=== PATIENT | male | born 1965 | race Caucasian/White ===

== ENCOUNTER 2023-10-21 09:32 | Day surgery (SDC) | payer BC ==
[~2023-10-21] VITALS: Ht 177.8 cm; Wt 172.7 kg
[~2023-10-21 09:32] MED LIST: ALLO100T PO; CVS1CHW13 PO; DILT180C38 PO; EZET10TA21 PO; FARX1TAB3 PO; FURO40TA2 PO; GNP45TAB2 PO; LEXA1TAB PO; PANT40TA29 PO; POTA-149 PO; WARF-21 PO; ZYLO100T2 PO
[2023-10-21] MEDS: NS 1,000 ML IV ONE (10:22)
[2023-10-21] MEDS ORDERED: LIDOCAINE 2% 100MG/5ML SDV (FOR ANES.) As Ordered ONE (11:18)
[2023-10-21] MEDS ORDERED: fentaNYL 100 MCG/2 ML INJECTION As Ordered ONE (11:18)
[2023-10-21] MEDS ORDERED: propofoL 200 MG/20 ML VIAL As Ordered ONE (11:18)
[2023-10-21 12:00] VITALS: TEMP 97
[2023-10-21 12:23] VITALS: BP 118/71; O2SAT 97
== END 2023-10-21 12:25 | disposition home or self-care (01) ==
LOC: M OPP 09:32
PROVIDERS: ATTEND Internal Medicine Gastroenterology
DX: Z12.11 Encounter for screening for malignant neoplasm of colon (principal); Z12.12 Encounter for screening for malignant neoplasm of rectum; D12.5 Benign neoplasm of sigmoid colon; D12.3 Benign neoplasm of transverse colon; D12.2 Benign neoplasm of ascending colon; K64.8 Other hemorrhoids; K64.4 Residual hemorrhoidal skin tags; K21.00 Gastro-esophageal reflux disease with esophagitis, without bleeding; K31.811 Angiodysplasia of stomach and duodenum with bleeding; K29.70 Gastritis, unspecified, without bleeding; D50.9 Iron deficiency anemia, unspecified; I48.91 Unspecified atrial fibrillation; I10 Essential (primary) hypertension; E11.9 Type 2 diabetes mellitus without complications; E78.00 Pure hypercholesterolemia, unspecified; J44.9 Chronic obstructive pulmonary disease, unspecified; G47.30 Sleep apnea, unspecified; Z79.899 Other long term (current) drug therapy; M10.9 Gout, unspecified; Z79.01 Long term (current) use of anticoagulants; Z88.0 Allergy status to penicillin; Z88.6 Allergy status to analgesic agent; Z88.8 Allergy status to other drugs, medicaments and biological substances; Z91.041 Radiographic dye allergy status
CPT/HCPCS: 43239; 43255; 45385; 88305; J3010

== ENCOUNTER → 2023-11-21 | Outpatient (CLI) | payer BC ==
[2023-11-21 10:42] LABS: BASO # 0.1 10^3/uL (0.0-0.2); BASO % 1.1 % (0.0-1.0); EOS # 0.3 10^3/uL (0.0-0.5); HEMATOCRIT 47.2 % (42.0-52.0); HEMOGLOBIN 15.4 g/dl (13.5-17.5); LYMPH # 1.5 10^3/uL (1.5-5.0); LYMPH % 23.8 % (24.0-44.0); MEAN CORPUSCULAR HEMOGLOBIN 27.4 pg (27.0-33.0); MEAN CORPUSCULAR HGB CONC 32.6 g/dl (32.0-36.5); MEAN CORPUSCULAR VOLUME 83.8 fl (80.0-96.0); MONO # 0.4 10^3/uL (0.0-0.8); MONO % 6.9 % (2.0-8.0); NEUTROPHILS # 4.1 10^3/uL (1.5-8.5); NEUTROPHILS % 63.7 % (36.0-66.0); PLATELET COUNT, AUTOMATED 194 10^3/uL (150-450); RED BLOOD COUNT 5.63 10^6/uL (4.30-6.10); WHITE BLOOD COUNT 6.4 10^3/uL (4.0-10.0)
[2023-11-21 11:18] LABS: FERRITIN 24.4 NG/ML (10.5-307.3)
[2023-11-21 11:21] LABS: PERCENT SATURATION 9.7 % (19.7-50.0)
== END ==
LOC: M LAB 09:38
PROVIDERS: ATTEND Nurse Practitioner Family
DX: D50.9 Iron deficiency anemia, unspecified (principal)

== ENCOUNTER 2023-12-22 11:35 | Day surgery (SDC) | payer BC ==
[~2023-12-22] VITALS: Ht 175.3 cm; Wt 170.7 kg
[~2023-12-22 11:35] MED LIST changes: +ARIP1TAB4 PO; +DILT-65 PO; +LEXA1TAB2 PO; +WARF-23 PO
[2023-12-22] MEDS ORDERED: propofoL 200 MG/20 ML VIAL As Ordered ONE (11:36)
[2023-12-22] MEDS: NS 1,000 ML IV ONE (11:48)
[2023-12-22 12:41] VITALS: TEMP 99.8
[2023-12-22 12:54] VITALS: BP 99/58; O2SAT 97
== END 2023-12-22 13:13 | disposition home or self-care (01) ==
LOC: M OPP 11:35
PROVIDERS: ATTEND Internal Medicine Gastroenterology
DX: K31.7 Polyp of stomach and duodenum (principal); K31.811 Angiodysplasia of stomach and duodenum with bleeding; D50.9 Iron deficiency anemia, unspecified; C7A.092 Malignant carcinoid tumor of the stomach; I51.9 Heart disease, unspecified; I48.91 Unspecified atrial fibrillation; E11.9 Type 2 diabetes mellitus without complications; G47.30 Sleep apnea, unspecified; Z99.89 Dependence on other enabling machines and devices; Z87.891 Personal history of nicotine dependence; Z79.01 Long term (current) use of anticoagulants; Z79.84 Long term (current) use of oral hypoglycemic drugs; Z79.899 Other long term (current) drug therapy; Z88.1 Allergy status to other antibiotic agents; Z88.6 Allergy status to analgesic agent; Z91.040 Latex allergy status; Z91.041 Radiographic dye allergy status

== ENCOUNTER → 2024-03-23 | Outpatient (REF) | payer BC | LOC: M LAB REF 11:44 | PROVIDERS: ATTEND Nurse Practitioner Family | DX: R19.7 Diarrhea, unspecified (principal) ==

== ENCOUNTER → 2024-04-14 | Outpatient (CLI) | payer BC ==
[~2024-04-14] MED LIST changes: +ESOM40CA35 PO
== END ==
LOC: M PLAIMG 09:47
PROVIDERS: ATTEND Nurse Practitioner Family
DX: K86.81 Exocrine pancreatic insufficiency (principal); Z90.49 Acquired absence of other specified parts of digestive tract

== ENCOUNTER 2024-04-20 12:02 | Day surgery (SDC) | payer BC ==
[~2024-04-20] VITALS: Ht 177.8 cm; Wt 170.1 kg
[~2024-04-20 12:02] MED LIST changes: +NS 250 ML IV ONE
[2024-04-20] MEDS ORDERED: propofoL 200 MG/20 ML VIAL As Ordered ONE (14:01)
[2024-04-20] MEDS ORDERED: LIDOCAINE 2% 100MG/5ML SDV (FOR ANES.) As Ordered ONE (14:01)
[2024-04-20 15:02] VITALS: TEMP 98
[2024-04-20] MEDS ORDERED: ePHEDrine SULFATE 25 MG/5 ML(5MG/ML) SYRINGE As Ordered ONE (15:08)
[2024-04-20 15:26] VITALS: BP 104/58; O2SAT 96
== END 2024-04-20 15:48 | disposition home or self-care (01) ==
LOC: M OPP 12:02
PROVIDERS: ATTEND Internal Medicine Gastroenterology
DX: D50.9 Iron deficiency anemia, unspecified (principal); C16.1 Malignant neoplasm of fundus of stomach; K31.819 Angiodysplasia of stomach and duodenum without bleeding; I48.91 Unspecified atrial fibrillation; E78.5 Hyperlipidemia, unspecified; E11.9 Type 2 diabetes mellitus without complications; K21.9 Gastro-esophageal reflux disease without esophagitis; M19.90 Unspecified osteoarthritis, unspecified site; F41.9 Anxiety disorder, unspecified; F32.A Depression, unspecified; J45.909 Unspecified asthma, uncomplicated; J44.9 Chronic obstructive pulmonary disease, unspecified; G47.30 Sleep apnea, unspecified; F12.20 Cannabis dependence, uncomplicated; E66.01 Morbid (severe) obesity due to excess calories; Z88.1 Allergy status to other antibiotic agents; Z88.6 Allergy status to analgesic agent; Z91.040 Latex allergy status; Z91.041 Radiographic dye allergy status; Z79.01 Long term (current) use of anticoagulants; Z79.84 Long term (current) use of oral hypoglycemic drugs; Z79.899 Other long term (current) drug therapy; Z80.0 Family history of malignant neoplasm of digestive organs; Z80.8 Family history of malignant neoplasm of other organs or systems

== ENCOUNTER 2024-05-10 21:47 | Emergency (ER) | payer BC ==
[~2024-05-10] VITALS: Ht 175.3 cm; Wt 169.2 kg
[~2024-05-10 21:47] MED LIST changes: -NS 250 ML IV ONE
[2024-05-10 22:41] LABS: BASO # 0.1 10^3/uL (0.0-0.2); EOS # 0.3 10^3/uL (0.0-0.5); EOS % 3.3 % (0.0-3.0); HEMATOCRIT 47.8 % (42.0-52.0); HEMOGLOBIN 16.7 g/dl (13.5-17.5); LYMPH # 1.7 10^3/uL (1.5-5.0); LYMPH % 22.4 % (24.0-44.0); MEAN CORPUSCULAR HEMOGLOBIN 30.8 pg (27.0-33.0); MEAN CORPUSCULAR HGB CONC 34.9 g/dl (32.0-36.5); MEAN CORPUSCULAR VOLUME 88.2 fl (80.0-96.0); MONO # 0.6 10^3/uL (0.0-0.8); MONO % 7.2 % (2.0-8.0); NEUTROPHILS % 65.8 % (36.0-66.0); PLATELET COUNT, AUTOMATED 184 10^3/uL (150-450); RED BLOOD COUNT 5.42 10^6/uL (4.30-6.10); WHITE BLOOD COUNT 7.6 10^3/uL (4.0-10.0)
[2024-05-10 22:53] LABS: INR 2.29; PARTIAL THROMBOPLASTIN TIME 37.5 SECONDS (24.8-34.2); PROTHROMBIN TIME 25.3 SECONDS (12.5-14.5)
[2024-05-10] MEDS: ONDANSETRON 4MG 2ML VIAL IV ONE (23:07)
[2024-05-10] MEDS: MORPHINE 4 MG/ML 1ML VIAL IV PRN (23:08)
[2024-05-10 23:10] LABS: LIPASE 50 U/L (12-53)
[2024-05-10 23:13] LABS: ALBUMIN 3.9 G/DL (3.2-5.2); ALKALINE PHOSPHATASE 84 U/L (40-129); ALT/SGPT 28 U/L (7.0-40); AST/SGOT 31 U/L (<34); BILIRUBIN,DIRECT 0.3 MG/DL (<0.4); BILIRUBIN,TOTAL 0.9 MG/DL (0.3-1.2); BLOOD UREA NITROGEN 13 MG/DL (9-23); CALCIUM LEVEL 9.5 MG/DL (8.5-10.1); CARBON DIOXIDE LEVEL 29 MMOL/L (20-31); CHLORIDE LEVEL 105 MMOL/L (98-107); CK-MB VALUE MASS < 1.0 NG/ML (<3.6); CREATININE FOR GFR 0.81 MG/DL (0.70-1.30); GLOMERULAR FILTRATION RATE > 60.0 (>56); GLUCOSE, FASTING 118 MG/DL (60-100); SODIUM LEVEL 139 MMOL/L (136-145); TOTAL PROTEIN 7.6 G/DL (5.7-8.2)
[2024-05-10 23:18] LABS: CPK CREATINE PHOSPHOKINASE 48 U/L (46-171); MB/CK RELATIVE INDEX 2.08 (< OR =4)
[2024-05-11 00:18] LABS: CK-MB VALUE MASS < 1.0 NG/ML (<3.6)
[2024-05-11 00:25] LABS: CPK CREATINE PHOSPHOKINASE 45 U/L (46-171); MB/CK RELATIVE INDEX 2.22 (< OR =4)
[2024-05-11] MEDS ORDERED: ONDA-282 PO (01:13)
[2024-05-11 01:41] VITALS: BP 117/69; TEMP 97.5; O2SAT 95
== END 2024-05-11 01:43 | disposition home or self-care (01) ==
LOC: M ED 21:47
DX: R10.9 Unspecified abdominal pain (principal); R11.0 Nausea; Z88.1 Allergy status to other antibiotic agents; Z88.6 Allergy status to analgesic agent; Z88.8 Allergy status to other drugs, medicaments and biological substances; Z91.041 Radiographic dye allergy status; I48.91 Unspecified atrial fibrillation; E11.9 Type 2 diabetes mellitus without complications; E78.5 Hyperlipidemia, unspecified; D50.9 Iron deficiency anemia, unspecified; Z79.899 Other long term (current) drug therapy
CPT/HCPCS: 74176; 80048; 80076; 81001; 82550; 82553; 83605; 83690; 84484; 85025; 85610; 85730; 86850; 86900; 86901; 93005; 93041; 96374; 96375; 99285; J2405

== ENCOUNTER 2024-06-02 21:13 | Emergency (ER) | payer BC ==
[~2024-06-02] VITALS: Ht 175.3 cm; Wt 172.7 kg
[~2024-06-02 21:13] MED LIST changes: +ONDA-282 PO
[2024-06-02 22:28] LABS: BASO % 0.7 % (0.0-1.0); EOS % 0.2 % (0.0-3.0); HEMATOCRIT 52.3 % (42.0-52.0); HEMOGLOBIN 18.6 g/dl (13.5-17.5); LYMPH # 1.1 10^3/uL (1.5-5.0); LYMPH % 21.1 % (24.0-44.0); MEAN CORPUSCULAR HEMOGLOBIN 30.5 pg (27.0-33.0); MEAN CORPUSCULAR HGB CONC 35.6 g/dl (32.0-36.5); MEAN CORPUSCULAR VOLUME 85.9 fl (80.0-96.0); MONO # 0.8 10^3/uL (0.0-0.8); MONO % 14.6 % (2.0-8.0); NEUTROPHILS # 3.4 10^3/uL (1.5-8.5); NEUTROPHILS % 62.8 % (36.0-66.0); PLATELET COUNT, AUTOMATED 151 10^3/uL (150-450); RED BLOOD COUNT 6.09 10^6/uL (4.30-6.10); WHITE BLOOD COUNT 5.4 10^3/uL (4.0-10.0)
[2024-06-02 22:43] LABS: LIPASE 35 U/L (12-53)
[2024-06-02 22:45] LABS: ALKALINE PHOSPHATASE 98 U/L (40-129); ALT/SGPT 45 U/L (7.0-40); AST/SGOT 51 U/L (<34); BILIRUBIN,DIRECT 0.5 MG/DL (<0.4); BILIRUBIN,TOTAL 1.6 MG/DL (0.3-1.2); BLOOD UREA NITROGEN 16 MG/DL (9-23); CARBON DIOXIDE LEVEL 27 MMOL/L (20-31); CHLORIDE LEVEL 99 MMOL/L (98-107); CREATININE FOR GFR 0.96 MG/DL (0.70-1.30); GLOMERULAR FILTRATION RATE > 60.0 (>56); GLUCOSE, FASTING 152 MG/DL (60-100); POTASSIUM SERUM 4.1 MMOL/L (3.5-5.1); SODIUM LEVEL 135 MMOL/L (136-145); TOTAL PROTEIN 7.7 G/DL (5.7-8.2)
[2024-06-03] MEDS: MORPHINE 4 MG/ML 1ML VIAL IV PRN (00:24)
[2024-06-03] MEDS: NS 1,000 ML IV ONE (01:03)
[2024-06-03 01:23] LABS: CK-MB VALUE MASS < 1.0 NG/ML (<3.6)
[2024-06-03 01:25] LABS: CPK CREATINE PHOSPHOKINASE 53 U/L (46-171); MB/CK RELATIVE INDEX 1.88 (< OR =4)
[2024-06-03] MEDS: diphenhydrAMINE 50MG/ML VIAL IV ONE (03:30)
[2024-06-03] MEDS: ONDANSETRON 4MG 2ML VIAL IV ONE (03:30)
[2024-06-03] MEDS: METOCLOPRAMIDE INJ 10MG/2ML VIAL IV ONE (03:30)
[2024-06-03] MEDS: methylPREDNISolone 125MG 2ML VIAL IV ONE (03:30)
[2024-06-03 04:02] VITALS: BP 141/65; TEMP 98; O2SAT 94
[2024-06-03] MEDS ORDERED: REGL10TA6 PO (05:05)
[2024-06-03] MEDS: OXYCODONE/APAP 5MG/325MG(HOME DOSE PACK) PO ONE (05:13)
== END 2024-06-03 05:15 | disposition home or self-care (01) ==
LOC: M ED 21:13
DX: R10.9 Unspecified abdominal pain (principal); R51.9 Headache, unspecified; R16.0 Hepatomegaly, not elsewhere classified; K76.0 Fatty (change of) liver, not elsewhere classified; I48.91 Unspecified atrial fibrillation; E11.9 Type 2 diabetes mellitus without complications; E61.1 Iron deficiency; Z79.01 Long term (current) use of anticoagulants; Z79.899 Other long term (current) drug therapy; Z91.041 Radiographic dye allergy status; Z88.0 Allergy status to penicillin; Z88.6 Allergy status to analgesic agent; Z88.8 Allergy status to other drugs, medicaments and biological substances; Z91.040 Latex allergy status
CPT/HCPCS: 74176; 76705; 80048; 80076; 82550; 82553; 83690; 84484; 85025; 93005; 96374; 96375; 96376; 99284; J1200; J2405; J2765; J2919

== ENCOUNTER → 2024-06-09 | Outpatient (CLI) | payer BC ==
[~2024-06-09] MED LIST changes: +REGL10TA6 PO
[2024-06-09 17:40] LABS: IRON (FE) 59 UG/DL (65-175); PERCENT SATURATION 17.4 % (19.7-50.0); TOTAL IRON BINDING CAPACITY 339 UG/DL (250-425)
[2024-06-09 17:41] LABS: ALBUMIN 3.5 G/DL (3.2-5.2); ALKALINE PHOSPHATASE 85 U/L (40-129); ALT/SGPT 45 U/L (7.0-40); AST/SGOT 37 U/L (<34); BILIRUBIN,DIRECT 0.3 MG/DL (<0.4)
[2024-06-09 18:01] LABS: HEPATITIS B SURFACE ANTIGEN NEGATIVE (NEGATIVE)
[2024-06-09 18:22] LABS: HEPATITIS C VIRUS ABY INDEX < 0.02 INDEX (<0.8)
[2024-06-09 18:23] LABS: HEPATITIS B CORE ANTIBODY IGM NEGATIVE (NEGATIVE)
== END ==
LOC: M LRY 08:55
PROVIDERS: ATTEND Physician Assistant Medical
DX: R74.01 Elevation of levels of liver transaminase levels (principal)

== ENCOUNTER → 2024-06-13 | Outpatient (REF) | payer BC | LOC: M LAB REF 09:22 | PROVIDERS: ATTEND Internal Medicine Gastroenterology | DX: K86.81 Exocrine pancreatic insufficiency (principal); R19.7 Diarrhea, unspecified; A09 Infectious gastroenteritis and colitis, unspecified ==

== ENCOUNTER → 2024-06-14 | Outpatient (CLI) | payer BC ==
[~2024-06-14] MED LIST changes: +PROHANCE 279.3MG/ML 15ML VIAL As Ordered ONE; +PROHANCE 279.3MG/ML 5ML VIAL As Ordered ONE
== END ==
LOC: M RAD 15:58
PROVIDERS: ATTEND Internal Medicine Gastroenterology
DX: D37.1 Neoplasm of uncertain behavior of stomach (principal); R74.01 Elevation of levels of liver transaminase levels; K86.81 Exocrine pancreatic insufficiency; R16.0 Hepatomegaly, not elsewhere classified; R16.1 Splenomegaly, not elsewhere classified
CPT/HCPCS: 74183; A9576

== ENCOUNTER → 2024-09-16 | Day surgery (SDC) | payer BC ==
[~2024-09-16] VITALS: Ht 180.3 cm; Wt 168.7 kg
[~2024-09-16] MED LIST changes: +ELIQ5TAB PO; -PROHANCE 279.3MG/ML 15ML VIAL As Ordered ONE; -PROHANCE 279.3MG/ML 5ML VIAL As Ordered ONE
[2024-09-16 12:47] VITALS: BP 129/70; TEMP 97.6; O2SAT 98
== END | disposition home or self-care (01) ==
LOC: M OPP 12:19
PROVIDERS: ATTEND Internal Medicine Gastroenterology
DX: Z53.09 Procedure and treatment not carried out because of other contraindication (principal); R05.9 Cough, unspecified; R53.83 Other fatigue; R09.81 Nasal congestion

== ENCOUNTER → 2024-10-14 | Day surgery (SDC) | payer BC ==
[~2024-10-14] VITALS: Ht 177.8 cm; Wt 168.7 kg
[~2024-10-14] MED LIST changes: +ALLO300T2 PO; +CREO3600 PO; +ESOM1CAP20 PO; +GLYCOPYRROLATE INJ 0.2 MG/ML 2 ML VIAL As Ordered ONE; +LIDOCAINE 2% 100MG/5ML SDV (FOR ANES.) As Ordered ONE; +POTA10CA70 PO; +fentaNYL 100 MCG/2 ML INJECTION As Ordered ONE; +propofoL 200 MG/20 ML VIAL As Ordered ONE
[2024-10-14 10:45] VITALS: TEMP 96.9
[2024-10-14 11:08] VITALS: BP 108/66; O2SAT 99
== END | disposition home or self-care (01) ==
LOC: M OPP 09:04
PROVIDERS: ATTEND Internal Medicine Gastroenterology
DX: K31.819 Angiodysplasia of stomach and duodenum without bleeding (principal); K31.89 Other diseases of stomach and duodenum; K31.7 Polyp of stomach and duodenum; Z79.01 Long term (current) use of anticoagulants; I48.91 Unspecified atrial fibrillation; G47.30 Sleep apnea, unspecified; Z88.1 Allergy status to other antibiotic agents; Z88.6 Allergy status to analgesic agent; Z88.8 Allergy status to other drugs, medicaments and biological substances; Z91.040 Latex allergy status; Z79.84 Long term (current) use of oral hypoglycemic drugs; Z79.899 Other long term (current) drug therapy; Z87.891 Personal history of nicotine dependence; J44.9 Chronic obstructive pulmonary disease, unspecified
CPT/HCPCS: 43251; 43255; 88305; J1596; J3010

== ENCOUNTER 2025-03-21 06:50 | Day surgery (SDC) | payer BC ==
[~2025-03-21] VITALS: Ht 175.3 cm; Wt 173.8 kg
[~2025-03-21 06:50] MED LIST changes: -EZET10TA21 PO; +EZET10TA57 PO; -GLYCOPYRROLATE INJ 0.2 MG/ML 2 ML VIAL As Ordered ONE; -LIDOCAINE 2% 100MG/5ML SDV (FOR ANES.) As Ordered ONE; +MELA10TA14 PO; +SILE6TAB3 PO; -fentaNYL 100 MCG/2 ML INJECTION As Ordered ONE; -propofoL 200 MG/20 ML VIAL As Ordered ONE
[2025-03-21] MEDS ORDERED: KETAMINE HCL 200 MG/20 ML VIAL As Ordered ONE (07:47)
[2025-03-21] MEDS ORDERED: GLYCOPYRROLATE INJ 0.2 MG/ML 2 ML VIAL As Ordered ONE (07:48)
[2025-03-21] MEDS ORDERED: LIDOCAINE 2% 100 MG/5 ML SDV (FOR ANES.) As Ordered ONE (07:48)
[2025-03-21 08:16] VITALS: TEMP 97.2
[2025-03-21 08:43] VITALS: BP 127/86; O2SAT 97
== END 2025-03-21 09:00 | disposition home or self-care (01) ==
LOC: M OPP 06:50
PROVIDERS: ATTEND Internal Medicine Gastroenterology
DX: Z87.19 Personal history of other diseases of the digestive system (principal); Z79.01 Long term (current) use of anticoagulants; Z79.899 Other long term (current) drug therapy; J44.9 Chronic obstructive pulmonary disease, unspecified; G47.30 Sleep apnea, unspecified
CPT/HCPCS: 43235; J1596

== ENCOUNTER 2025-06-06 11:51 | Day surgery (SDC) | payer BC ==
[~2025-06-06] VITALS: Ht 175.3 cm; Wt 173.7 kg
[~2025-06-06 11:51] MED LIST changes: +DILT120C78 PO
[2025-06-06] MEDS ORDERED: LIDOCAINE 2% 100 MG/5 ML SDV (FOR ANES.) As Ordered ONE (14:46)
[2025-06-06 15:46] VITALS: BP 119/73; O2SAT 95
== END 2025-06-06 15:49 | disposition home or self-care (01) ==
LOC: M OPP 11:51
PROVIDERS: ATTEND Internal Medicine Gastroenterology
DX: Z86.018 Personal history of other benign neoplasm (principal); I48.91 Unspecified atrial fibrillation; G47.30 Sleep apnea, unspecified; Z88.1 Allergy status to other antibiotic agents; Z88.6 Allergy status to analgesic agent; Z88.8 Allergy status to other drugs, medicaments and biological substances; Z91.040 Latex allergy status; Z91.041 Radiographic dye allergy status; Z79.899 Other long term (current) drug therapy